=== PATIENT | female | born 1995 | race Caucasian/White ===

== ENCOUNTER → 2017-08-27 | Outpatient (CLI) | payer MEDICAID ==
--- NOTE | 2017-08-28 07:27 | CPEEG ---
[f rep st] ELECTROENCEPHALOGRAM DATE OF STUDY: 08/27/2017 INTERPRETATION: Normal EEG during wakefulness and sleep. There were no potentially epileptogenic abnormalities present in the recording. REPORT: This EEG contains sparse, low amplitude 11 Hz alpha activity to the posterior head regions. There was no abnormal activation at rest, during hyperventilation or photic stimulation. The patient became drowsy and fell into sustained sleep during the study. There was no abnormal activation during drowsiness, sleep, or during times of arousal. /[id number]/MODL MTDD
== END ==
LOC: FCPNEURO 12:44
PROVIDERS: ATTEND Psychiatry & Neurology Neurology
DX: R25.2 Cramp and spasm (principal)

== ENCOUNTER → 2018-07-03 | Outpatient (CLI) | payer MEDICAID | LOC: BMCIMAGING 07:20 | PROVIDERS: ATTEND Internal Medicine | DX: R10.10 Upper abdominal pain, unspecified (principal) ==

== ENCOUNTER 2018-12-16 15:56 | Emergency (ER) | payer MEDICAID ==
[2018-12-16] MEDS ORDERED: ONDANSETRON 4 MG/2 ML VIAL ONE (16:16)
[2018-12-16] MEDS ORDERED: NS 1,000 ML IV ONE ×3 (16:26→17:58)
[2018-12-16] MEDS ORDERED: LORazepam 2 MG/ML INJ IVP ONE ×2 (16:27)
--- NOTE | 2018-12-16 16:29 | EDPHY ---
H & P Stated Complaint: Nausea and vomiting Time Seen by Provider: 12/16/18 16:13 HPI/ROS: CHIEF COMPLAINT: Nausea, vomiting, lightheadedness, facial paresthesias HISTORY OF PRESENT ILLNESS: Patient presents the ED with nausea, vomiting lightheadedness along with facial paresthesias that began at work today. The patient complains of bilateral facial paresthesias. She denies any additional neurologic symptoms. She denies acute abdominal pain. She denies prior history of the symptoms. The patient does take Lexapro which she has been on for some time. The patient denies any dysuria, flank pain or severe headache. The patient reports that her symptoms are moderate to severe in nature. REVIEW OF SYSTEMS: A comprehensive 10 point review of systems is otherwise negative aside from elements mentioned in the history of present illness. Source: Patient Exam Limitations: No limitations - Personal History Current Tetanus/Diphtheria Vaccine: Yes Current Tetanus Diphtheria and Acellular Pertussis (TDAP): Yes - Medical/Surgical History Hx Asthma: No Hx Chronic Respiratory Disease: No Hx Diabetes: No Hx Cardiac Disease: No Hx Renal Disease: No Hx Cirrhosis: No Hx Alcoholism: No Hx HIV/AIDS: No Hx Splenectomy or Spleen Trauma: No Other PMH: asthma, depression, - Social History Smoking Status: Never smoked - Physical Exam Exam: General Appearance: Alert, anxious Eyes: Pupils equal and round no pallor or injection ENT, Mouth: Mucous membranes moist Respiratory: There are no retractions, lungs are clear to auscultation Cardiovascular: Regular rate and rhythm Gastrointestinal: Benign abdominal examination, no peritoneal signs Neurological: A&O, normal motor function, normal sensory exam, normal cranial nerves Skin: Warm and dry, no rashes Musculoskeletal: Neck is supple nontender Extremities: symmetrical, full range of motion Psychiatric: Patient is oriented X 3, there is no agitation Constitutional: Initial Vital Signs Temperature (C) 36.9 C 12/16/18 16:07 Heart Rate 138 H 12/16/18 16:07 Respiratory Rate 24 H 12/16/18 16:07 Blood Pressure 127/88 H 12/16/18 16:07 O2 Sat (%) 100 12/16/18 16:07 O2 Delivery Mode Room Air Allergies/Adverse Reactions: No Known Allergies Allergy (Unverified 12/16/18 16:06) Home Medications: Medication Instructions Recorded Lexapro 12/16/18 Medical Decision Making ED Course/Re-evaluation: Patient presents to the ED with acute vomiting. She had an IV established. She received a L of normal saline. She received 4 mg of Zofran. She received 1 mg of IV Ativan. The patient received serial examinations in the ED. At 7:00 p.m. I reexamined her and she is feeling much better. She is tolerating p.o's without recurrent vomiting. Her vital signs stabilized. The patient's abdominal examination remains benign. Her laboratory studies are unremarkable. The patient will be discharged home with a prescription for Zofran. She is given customary aftercare instructions and return precautions. Differential Diagnosis: Differential diagnosis considered includes gastroenteritis, appendicitis, pancreatitis, medication side effect, dehydration - Data Points Laboratory Results: Laboratory Results 12/16/18 16:25 12/16/18 16:25 12/16/18 12/16/18 12/16/18 16:25 16:25 16:25 WBC 7.27 10^3/uL 10^3/uL (3.80-9.50) RBC 5.24 10^6/uL 10^6/uL (4.18-5.33) Hgb 16.3 g/dL g/dL (12.6-16.3) Hct 46.6 % % (38.0-47.0) MCV 88.9 fL fL (81.5-99.8) MCH 31.1 pg pg (27.9-34.1) MCHC 35.0 g/dL g/dL (32.4-36.7) RDW 11.7 % % (11.5-15.2) Plt Count 340 10^3/uL 10^3/uL (150-400) MPV 7.9 fL L fL (8.7-11.7) Neut % (Auto) 53.6 % % (39.3-74.2) Lymph % (Auto) 37.0 % % (15.0-45.0) [place] % (Auto) 4.7 % % (4.5-13.0) Eos % (Auto) 4.0 % % (0.6-7.6) Baso % (Auto) 0.6 % % (0.3-1.7) Nucleat RBC Rel Count 0.0 % % (0.0-0.2) Absolute Neuts (auto) 3.90 10^3/uL 10^3/uL (1.70-6.50) Absolute Lymphs (auto) 2.69 10^3/uL 10^3/uL (1.00-3.00) Absolute Monos (auto) 0.34 10^3/uL 10^3/uL (0.30-0.80) Absolute Eos (auto) 0.29 10^3/uL 10^3/uL (0.03-0.40) Absolute Basos (auto) 0.04 10^3/uL 10^3/uL (0.02-0.10) Absolute Nucleated RBC 0.00 10^3/uL 10^3/uL (0-0.01) Immature Gran % 0.1 % % (0.0-1.1) Immature Gran # 0.01 10^3/uL 10^3/uL (0.00-0.10) Sodium 138 mEq/L mEq/L (135-145) Potassium 3.9 mEq/L mEq/L (3.5-5.2) Chloride 98 mEq/L mEq/L (97-110) Carbon Dioxide 23 mEq/l mEq/l (22-31) Anion Gap 17 mEq/L H mEq/L (6-14) BUN 11 mg/dL mg/dL (7-23) Creatinine 0.7 mg/dL mg/dL (0.6-1.0) Estimated GFR > 60 Glucose 132 mg/dL H mg/dL (70-100) Calcium 11.4 mg/dL H mg/dL (8.5-10.4) Phosphorus 3.3 mg/dL mg/dL (2.5-4.5) Total Bilirubin 0.7 mg/dL mg/dL (0.1-1.4) Conjugated Bilirubin 0.3 mg/dL mg/dL (0.0-0.5) Unconjugated Bilirubin 0.4 mg/dL mg/dL (0.0-1.1) AST 39 IU/L IU/L (14-46) ALT 43 IU/L IU/L (9-52) Alkaline Phosphatase 93 IU/L IU/L (38-126) Total Protein 8.6 g/dL H g/dL (6.3-8.2) Albumin 5.5 g/dL H g/dL (3.5-5.0) Lipase 72 IU/L IU/L (23-300) Beta HCG, Qual NEGATIVE Medications Given: Discontinued Medications Sodium Chloride (Ns) 1,000 mls @ 0 mls/hr IV ONCE ONE PRN Reason: Wide Open Stop: 12/16/18 16:27 Last Admin: 12/16/18 16:27 Dose: 1,000 mls Sodium Chloride (Ns) 1,000 mls @ 0 mls/hr IV EDNOW ONE; Wide Open PRN Reason: Protocol Stop: 12/16/18 16:29 Last Admin: 12/16/18 17:52 Dose: 1,000 mls Sodium Chloride (Ns) 1,000 mls @ 0 mls/hr IV EDNOW ONE; Wide Open PRN Reason: Protocol Stop: 12/16/18 17:59 Last Admin: 12/16/18 18:15 Dose: Not Given Lorazepam (Ativan Injection) 1 mg IVP EDNOW ONE Stop: 12/16/18 16:28 Last Admin: 12/16/18 16:34 Dose: 1 mg Lorazepam (Ativan Injection) 1 mg IVP EDNOW ONE Stop: 12/16/18 16:28 Last Admin: 12/16/18 16:44 Dose: Not Given Ondansetron HCl (Zofran) 4 mg IVP EDNOW ONE Stop: 12/16/18 16:37 Last Admin: 12/16/18 16:36 Dose: 4 mg Departure - Departure Disposition: Home, Routine, Self-Care Clinical Impression: Vomiting Condition: Good Instructions: Acute Nausea and Vomiting (ED) Additional Instructions: 1. Return to the ED for worsening symptoms, severe pain or other concerns. 2. Zofran as needed for recurrent nausea and vomiting.
[2018-12-16] MEDS ORDERED: ONDANSETRON 4 MG/2 ML VIAL IVP ONE (16:36)
[2018-12-16 16:40] LABS: PLATELET COUNT 340 10^3/uL (150-400)
[2018-12-16 19:10] VITALS: BP 115/88
== END 2018-12-16 19:13 | disposition home or self-care (01) ==
DX: R11.2 Nausea with vomiting, unspecified (principal); R20.2 Paresthesia of skin; R42 Dizziness and giddiness; E86.9 Volume depletion, unspecified
CPT/HCPCS: 96374; J2060; J2405

== ENCOUNTER 2018-12-20 20:46 | Emergency (ER) | payer MEDICAID ==
[2018-12-20] MEDS ORDERED: ONDANSETRON 4 MG/2 ML VIAL IVP ONE (22:01)
[2018-12-20] MEDS ORDERED: NS 1,000 ML IV ONE (22:01)
--- NOTE | 2018-12-20 22:01 | EDPHY ---
H & P Stated Complaint: Vomiting, generalized abd pain, intermittent diarrhea Time Seen by Provider: 12/20/18 21:51 HPI/ROS: Chief Complaint: Nausea, vomiting, abdominal pain HPI: 23-year-old is presenting with 5 days of nausea, vomiting, intermittent upper abdominal pain. Patient was seen here 5 days ago and given IV fluids and Zofran. She has been having intermittent nausea and mild epigastric abdominal pain since then. Today symptoms got worse around 6:00 a.m. This evening. Epigastric pain is about a 2/10. Is nonradiating. There are no aggravating or alleviating factors. She has had multiple episodes of bilious vomiting. No blood in her vomit. She has had some occasional alternating loose stools with diarrhea. No blood or dark black. No fevers or chills. No urinary urgency or frequency. Last menstrual cycle was 2 weeks ago was normal. Does not believe she is . No fevers or chills. No chest pain or shortness of breath. No lightheadedness or fainting. ROS: 10 systems were reviewed and were negative except those elements noted in the HPI. PMH: Depression Social History: No smoking, drinks at least 2 or more alcoholic beverages a day , no recreational drug use Family History: non-contributory Physical Exam: Gen: Awake, Alert, No Distress HEENT: Nose: no rhinorrhea Eyes: PERRLA, EOMI Mouth: Moist mucosa Neck: Supple, no JVD Chest: nontender, lungs clear to auscultation Heart: S1, S2 normal, no murmur Abd: Soft, mild epigastric abdominal pain, no guarding Back: no CVA tenderness, no midline tenderness Ext: no edema, non-tender Skin: no rash Neuro: CN II-XII intact, Sensation grossly intact, Strength 5/5 in bilateral upper and lower extremities - Personal History LMP (Females 10-55): 8-14 Days Ago - Medical/Surgical History Hx Asthma: No Hx Chronic Respiratory Disease: No Hx Diabetes: No Hx Cardiac Disease: No Hx Renal Disease: No Hx Cirrhosis: No Hx Alcoholism: No Hx HIV/AIDS: No Hx Splenectomy or Spleen Trauma: No Other PMH: asthma, depression, - Social History Smoking Status: Never smoked Constitutional: Initial Vital Signs Temperature (C) 36.7 C 12/20/18 20:47 Heart Rate 91 12/20/18 20:47 Respiratory Rate 18 12/20/18 20:47 Blood Pressure 117/76 12/20/18 20:47 O2 Sat (%) 96 12/20/18 20:47 O2 Delivery Mode Room Air Allergies/Adverse Reactions: No Known Allergies Allergy (Unverified 12/20/18 20:47) Home Medications: Medication Instructions Recorded Lexapro 12/16/18 Ondansetron Odt [Zofran Odt] 4 mg PO Q4PRN PRN #20 tab 12/16/18 Medical Decision Making ED Course/Re-evaluation: 23-year-old presenting with symptoms consistent with gastroenteritis. Abdomen is soft and benign. Mild epigastric abdominal tenderness. Will hydrate, antiemetics and reassess. Patient is improved after IV Zofran. Will p.o. Challenge. Laboratory evaluations are unremarkable. Patient has a soft benign abdomen. Symptoms consistent with gastroenteritis. Will discharge with oral Zofran. Follow-up with referral to primary care. - Data Points Laboratory Results: Laboratory Results 12/20/18 21:07 12/20/18 21:07 12/20/18 12/20/18 12/20/18 21:07 21:07 21:07 WBC 6.92 10^3/uL 10^3/uL (3.80-9.50) RBC 4.81 10^6/uL 10^6/uL (4.18-5.33) Hgb 14.8 g/dL g/dL (12.6-16.3) Hct 43.4 % % (38.0-47.0) MCV 90.2 fL fL (81.5-99.8) MCH 30.8 pg pg (27.9-34.1) MCHC 34.1 g/dL g/dL (32.4-36.7) RDW 11.8 % % (11.5-15.2) Plt Count 308 10^3/uL 10^3/uL (150-400) MPV 8.3 fL L fL (8.7-11.7) Neut % (Auto) 46.7 % % (39.3-74.2) Lymph % (Auto) 40.8 % % (15.0-45.0) [place] % (Auto) 6.8 % % (4.5-13.0) Eos % (Auto) 4.8 % % (0.6-7.6) Baso % (Auto) 0.6 % % (0.3-1.7) Nucleat RBC Rel Count 0.0 % % (0.0-0.2) Absolute Neuts (auto) 3.24 10^3/uL 10^3/uL (1.70-6.50) Absolute Lymphs (auto) 2.82 10^3/uL 10^3/uL (1.00-3.00) Absolute Monos (auto) 0.47 10^3/uL 10^3/uL (0.30-0.80) Absolute Eos (auto) 0.33 10^3/uL 10^3/uL (0.03-0.40) Absolute Basos (auto) 0.04 10^3/uL 10^3/uL (0.02-0.10) Absolute Nucleated RBC 0.00 10^3/uL 10^3/uL (0-0.01) Immature Gran % 0.3 % % (0.0-1.1) Immature Gran # 0.02 10^3/uL 10^3/uL (0.00-0.10) Sodium 136 mEq/L mEq/L (135-145) Potassium 4.2 mEq/L mEq/L (3.5-5.2) Chloride 101 mEq/L mEq/L (97-110) Carbon Dioxide 24 mEq/l mEq/l (22-31) Anion Gap 11 mEq/L mEq/L (6-14) BUN 10 mg/dL mg/dL (7-23) Creatinine 0.6 mg/dL mg/dL (0.6-1.0) Estimated GFR > 60 Glucose 92 mg/dL mg/dL (70-100) Calcium 9.6 mg/dL mg/dL (8.5-10.4) Total Bilirubin 0.5 mg/dL mg/dL (0.1-1.4) AST 41 IU/L IU/L (14-46) ALT 48 IU/L IU/L (9-52) Alkaline Phosphatase 75 IU/L IU/L (38-126) Total Protein 7.4 g/dL g/dL (6.3-8.2) Albumin 4.7 g/dL g/dL (3.5-5.0) Lipase 62 IU/L IU/L (23-300) Beta HCG, Qual NEGATIVE Medications Given: Discontinued Medications Sodium Chloride (Ns) 1,000 mls @ 0 mls/hr IV ONCE ONE; Wide Open PRN Reason: Protocol Stop: 12/20/18 22:02 Last Admin: 12/20/18 22:21 Dose: 1,000 mls Ondansetron HCl (Zofran) 4 mg IVP EDNOW ONE Stop: 12/20/18 22:02 Last Admin: 12/20/18 22:22 Dose: 4 mg Departure - Departure Disposition: Home, Routine, Self-Care Clinical Impression: Acute gastroenteritis Condition: Good Instructions: Gastroenteritis (ED), Ondansetron (By mouth) Additional Instructions: You may take Zofran as needed for nausea vomiting. Follow up with primary care physician in 2-3 days if symptoms are not improving. Referrals: Carolin Hidalgo MD [Medical Doctor] - As per Instructions
[2018-12-20 22:09] LABS: PLATELET COUNT 308 10^3/uL (150-400)
[2018-12-20] MEDS ORDERED: ONDANSETRON 4MG PREPACK#2 BTL TAKEHOME ONE (23:13)
[2018-12-20 23:16] VITALS: BP 105/72
== END 2018-12-20 23:29 | disposition home or self-care (01) ==
DX: K52.9 Noninfective gastroenteritis and colitis, unspecified (principal); E86.9 Volume depletion, unspecified
CPT/HCPCS: 96374; J2405